=== PATIENT | male | born 1980 | race Caucasian/White ===

== ENCOUNTER 2017-02-05 20:30 | Emergency (ER) | payer BC ==
--- NOTE | 2017-02-05 21:42 | ED CLINICAL REPORT ---
Clinical Report - Physicians/Mid Levels [facility] [address] [place] [address] 02/05/2017 20:33 [id number] Time Seen: 21:01; initial patient contact. Arrived- By private vehicle. Historian- patient. HISTORY OF PRESENT ILLNESS Chief Complaint: Injury to the right ring finger. The injury happened today. The patient sustained a laceration from a sharp edge. Patient is experiencing mild pain. Patient denies injury to the head or neck. REVIEW OF SYSTEMS The patient sustained a laceration. No swelling, tingling, numbness, weakness or foreign body. All systems otherwise negative, except as recorded above. PAST HISTORY See nurses notes. The patient's dominant hand is the right. Last tetanus immunization was more than 5 years ago. SOCIAL HISTORY Smoker - current status unknown. ADDITIONAL NOTES The nursing notes have been reviewed. PHYSICAL EXAM Vital Signs: 02/05/2017 20:40 BP: 133/88. HR: 78. RR: 14. O2 saturation: 98%. Temp: 98.6 F. Have been reviewed as normal. Appearance: Alert. Oriented X3. Skin: Skin warm and dry. Extremities: Right ring finger: subcutaneous 1.5 cm laceration of the dorsal aspect and PIP joint. Neurovascular intact distally. No limitation in movement. No wrist injury. Hand and wrist exam otherwise negative. Extremities otherwise negative. Neuro, Vascular and Tendons: Vascular status intact. Sensation intact. Motor intact. Tendon function intact. Neuro: Oriented X 3. No motor deficit. No sensory deficit. PROGRESS AND PROCEDURES Digital Nerve Block - Finger: Time: 21:25. Digital nerve block performed on the right ring finger. Web space approach utilized. Landmarks identified. Skin prepped. Total volume of 4 mL 1% Lidocaine infiltrated via two punctures using a 27-gauge needle. No complications encountered. Excellent anesthesia achieved. Laceration Repair: Time: 21:39. Location: right ring finger. Per protocol, time-out completed immediately before the procedure. Length: 1.5cm. Complexity: simple (sutured). Wound depth/shape- subcutaneous. Distal neuro/vascular/tendon status normal. Anesthesia provided by digital block using 1% lidocaine (4 mL). Prepped with Hibiclens. Wound explored, irrigated and examined to the base in bloodless field extensively with normal saline. Closure of skin: interrupted 4-0 nylon (3 sutures). Post-procedure: he is stable and there are no complications. Bleeding is controlled and neuro-vascular status is intact distal to the wound. Dressing applied. Tetanus immunization given. Estimated blood loss: 3 mL. Disposition: Discharged home in good and improved condition. Condition: good. CLINICAL IMPRESSION Single deep laceration to the right ring finger.Treatment of laceration not delayed. No infection, foreign body present or right fingernail injury. INSTRUCTIONS Limit use of your right hand for seven days. Do not work for seven days. Warnings: TETANUS: You were given a tetanus shot during your visit. Make a note for future reference. Follow-up: Follow up with your doctor in one week for suture removal. Call for an appointment. Screening today revealed the patient's blood pressure to be in the pre-hypertensive range. The patient should follow up with a primary care provider for blood pressure management. (Electronically signed by Siva Toribio Dr. 02/06/2017 2:45)
--- NOTE | 2017-02-05 21:42 | ED ORDER SUMMARY ---
..... Patient: JACQUELYN KRISHNAMURTHY OrderSheet [facility] VisitID: [id number] [address] [place] [address] 36y, M Registration Date/Time: 02/05/2017 ORDER SHEET Weight: 90.7 kg (estimated) Allergies: Unable to Obtain GENERAL ORDERS: MEDICATION ORDERS: Tdap IM 0.5 mL (NOW, per protocol) (20:48 02/05/2017 Jesse R.N. per protocol) ([facility] 20:48 Jesse R.N.) (21:00 Adalgisa R.N.) IV FLUIDS: ORDER SHEET NOTES: [Electronically signed by Michael Haque R.N. (22:00 02/05/2017)] [Electronically signed by Siva Toribio Dr. (02:45 02/06/2017)] [Electronically locked/signed by Michael Haque R.N. (22:00 02/05/2017)]
--- NOTE | 2017-02-05 21:42 | ED NURSING NOTES ---
Clinical Report - Nurses [facility] [address] [place] [address] 02/05/2017 20:33 Patient: JACQUELYN KRISHNAMURTHY TRIAGE Triage time 20:41. Chief Complaint: LACERATION. Alert. --20:46 Dashawn Garcia R.N. 20:40 02/05/17. BP: 133/88. HR: 78. RR: 14. O2 saturation: 98%. Temp: 98.6 F. Pain level now 10/18. --20:46 Dashawn Garcia R.N. Weight: 90.7 kg estimated. Height/Length: 72 inches Estimated. BMI: 27.1. --21:58 Michael Haque R.N. Allergies Unable to Obtain. --21:59 Michael Haque R.N. History Arrived by private vehicle. Historian: patient. Location of injuries: right ring finger. This occurred today. ( approx 17:50). Treatment DAYTIME CAREGIVER: None. Trauma activation: Pre-hospital notification of patient arrival was not received. FALL RISK ASSESSMENT: Fall risk assessment completed. No fall risk identified. NUTRITIONAL RISK ASSESSMENT: The nutritional risk assessment revealed no deficiencies. FUNCTIONAL ASSESSMENT: Functional assessment: no impairments noted. LEARNING NEEDS ASSESSMENT: The learning needs assessment revealed no barriers. SKIN INTEGRITY ASSESSMENT: Skin integrity risk assessment completed. No skin integrity risk identified. --20:46 Dashawn Garcia R.N. Interventions ID band on patient. --20:46 Dashawn Garcia R.N. PHYSICAL ASSESSMENT GENERAL / NEURO / PSYCH: Alert. Oriented X 4. Appears in no acute distress. RESPIRATORY: Respirations not labored. CVS: Capillary refill less than 2 seconds. EXTREMITIES: Right ring finger: laceration with controlled bleeding. SKIN: Skin is warm and dry. Skin not intact. --21:03 Michael Haque R.N. NURSING PROGRESS NOTES <<STRICKEN ENTRY-- 21:00 02/05/2017 TDAP IM 0.5 mL given. (Lot#: [id number], Wrapper Rewinder: sanofi pasteur). Given in the left deltoid. Allergies verified and confirmed 5 rights. Vaccine information statement provided to the patient. --21:00 Michael Haque R.N. --END STRIKE>> Change to Details. --21:01 Michael Haque R.N. 21:00 02/05/2017 TDAP IM 0.5 mL given. (Lot#: [id number], expiration date: 07/16/2018, Wrapper Rewinder: sanofi pasteur). Given in the left deltoid. Allergies verified and confirmed 5 rights. Vaccine information statement provided to the patient. --21:01 Michael Haque R.N. ( Tech applied dressing and splint to affected finger). --21:52 Michael Haque R.N. ( Splint applied by [employer]). --21:56 Michael Haque R.N. ( Tech who applied splint and dressing is Ivy). --21:58 Michael Haque R.N. DISPOSITION / DISCHARGE Condition at departure: stable. No learning barriers present. Discharge instructions provided and reviewed with the patient. Reviewed warnings. Treatments reviewed. Reviewed referrals for followup. Work note given. Patient verbalized understanding. Written instructions provided in Hebrew. The patient was discharged home and unaccompanied at time of discharge. He left the Emergency Department ambulatory and via private vehicle. Patient driving. --21:53 Michael Haque R.N. 21:52 02/05/17. HR: 85. RR: 16 (regular and unlabored). O2 saturation: 98% on room air. Pain level now: 10/18. --21:53 Michael Haque R.N. Departure time: :56. --21:56 Michael Haque R.N. Locked/Released at 02/05/2017 22:00 by Michael Haque R.N.
--- NOTE | 2017-02-05 21:42 | ED NURSING NOTES ---
Clinical Report - Nurses [facility] [address] [place] [address] 02/05/2017 20:33 Patient: JACQUELYN KRISHNAMURTHY TRIAGE Triage time 20:41. Chief Complaint: LACERATION. Alert. --20:46 Dashawn Garcia R.N. 20:40 02/05/17. BP: 133/88. HR: 78. RR: 14. O2 saturation: 98%. Temp: 98.6 F. Pain level now 10/18. --20:46 Dashawn Garcia R.N. Weight: 90.7 kg estimated. Height/Length: 72 inches Estimated. BMI: 27.1. --21:58 Michael Haque R.N. Allergies Unable to Obtain. --21:59 Michael Haque R.N. History Arrived by private vehicle. Historian: patient. Location of injuries: right ring finger. This occurred today. ( approx 17:50). Treatment FUNDRAISING CONSULTANT: None. Trauma activation: Pre-hospital notification of patient arrival was not received. FALL RISK ASSESSMENT: Fall risk assessment completed. No fall risk identified. NUTRITIONAL RISK ASSESSMENT: The nutritional risk assessment revealed no deficiencies. FUNCTIONAL ASSESSMENT: Functional assessment: no impairments noted. LEARNING NEEDS ASSESSMENT: The learning needs assessment revealed no barriers. SKIN INTEGRITY ASSESSMENT: Skin integrity risk assessment completed. No skin integrity risk identified. --20:46 Dashawn Garcia R.N. Interventions ID band on patient. --20:46 Dashawn Garcia R.N. PHYSICAL ASSESSMENT GENERAL / NEURO / PSYCH: Alert. Oriented X 4. Appears in no acute distress. RESPIRATORY: Respirations not labored. CVS: Capillary refill less than 2 seconds. EXTREMITIES: Right ring finger: laceration with controlled bleeding. SKIN: Skin is warm and dry. Skin not intact. --21:03 Michael Haque R.N. NURSING PROGRESS NOTES <<STRICKEN ENTRY-- 21:00 02/05/2017 TDAP IM 0.5 mL given. (Lot#: [id number], System Operator: sanofi pasteur). Given in the left deltoid. Allergies verified and confirmed 5 rights. Vaccine information statement provided to the patient. --21:00 Michael Haque R.N. --END STRIKE>> Change to Details. --21:01 Michael Haque R.N. 21:00 02/05/2017 TDAP IM 0.5 mL given. (Lot#: [id number], expiration date: 07/16/2018, System Operator: sanofi pasteur). Given in the left deltoid. Allergies verified and confirmed 5 rights. Vaccine information statement provided to the patient. --21:01 Michael Haque R.N. ( Tech applied dressing and splint to affected finger). --21:52 Michael Haque R.N. ( Splint applied by [employer]). --21:56 Michael Haque R.N. ( Tech who applied splint and dressing is Ivy). --21:58 Michael Haque R.N. DISPOSITION / DISCHARGE Condition at departure: stable. No learning barriers present. Discharge instructions provided and reviewed with the patient. Reviewed warnings. Treatments reviewed. Reviewed referrals for followup. Work note given. Patient verbalized understanding. Written instructions provided in Chinese. The patient was discharged home and unaccompanied at time of discharge. He left the Emergency Department ambulatory and via private vehicle. Patient driving. --21:53 Michael Haque R.N. 21:52 02/05/17. HR: 85. RR: 16 (regular and unlabored). O2 saturation: 98% on room air. Pain level now: 10/18. --21:53 Michael Haque R.N. Departure time: :56. --21:56 Michael Haque R.N. Locked/Released at 02/05/2017 22:00 by Michael Haque R.N.
--- NOTE | 2017-02-05 21:42 | ED ORDER SUMMARY ---
..... Patient: JACQUELYN KRISHNAMURTHY OrderSheet [facility] VisitID: [id number] [address] [place] [address] 36y, M Registration Date/Time: 02/05/2017 ORDER SHEET Weight: 90.7 kg (estimated) Allergies: Unable to Obtain GENERAL ORDERS: MEDICATION ORDERS: Tdap IM 0.5 mL (NOW, per protocol) (20:48 02/05/2017 Jesse R.N. per protocol) ([facility] 20:48 Jesse R.N.) (21:00 Adalgisa R.N.) IV FLUIDS: ORDER SHEET NOTES: [Electronically signed by Michael Haque R.N. (22:00 02/05/2017)] [Electronically signed by Siva Toribio Dr. (02:45 02/06/2017)] [Electronically locked/signed by Michael Haque R.N. (22:00 02/05/2017)]
--- NOTE | 2017-02-05 21:42 | ED CLINICAL REPORT ---
Clinical Report - Physicians/Mid Levels [facility] [address] [place] [address] 02/05/2017 20:33 [id number] Time Seen: 21:01; initial patient contact. Arrived- By private vehicle. Historian- patient. HISTORY OF PRESENT ILLNESS Chief Complaint: Injury to the right ring finger. The injury happened today. The patient sustained a laceration from a sharp edge. Patient is experiencing mild pain. Patient denies injury to the head or neck. REVIEW OF SYSTEMS The patient sustained a laceration. No swelling, tingling, numbness, weakness or foreign body. All systems otherwise negative, except as recorded above. PAST HISTORY See nurses notes. The patient's dominant hand is the right. Last tetanus immunization was more than 5 years ago. SOCIAL HISTORY Smoker - current status unknown. ADDITIONAL NOTES The nursing notes have been reviewed. PHYSICAL EXAM Vital Signs: 02/05/2017 20:40 BP: 133/88. HR: 78. RR: 14. O2 saturation: 98%. Temp: 98.6 F. Have been reviewed as normal. Appearance: Alert. Oriented X3. Skin: Skin warm and dry. Extremities: Right ring finger: subcutaneous 1.5 cm laceration of the dorsal aspect and PIP joint. Neurovascular intact distally. No limitation in movement. No wrist injury. Hand and wrist exam otherwise negative. Extremities otherwise negative. Neuro, Vascular and Tendons: Vascular status intact. Sensation intact. Motor intact. Tendon function intact. Neuro: Oriented X 3. No motor deficit. No sensory deficit. PROGRESS AND PROCEDURES Digital Nerve Block - Finger: Time: 21:25. Digital nerve block performed on the right ring finger. Web space approach utilized. Landmarks identified. Skin prepped. Total volume of 4 mL 1% Lidocaine infiltrated via two punctures using a 27-gauge needle. No complications encountered. Excellent anesthesia achieved. Laceration Repair: Time: 21:39. Location: right ring finger. Per protocol, time-out completed immediately before the procedure. Length: 1.5cm. Complexity: simple (sutured). Wound depth/shape- subcutaneous. Distal neuro/vascular/tendon status normal. Anesthesia provided by digital block using 1% lidocaine (4 mL). Prepped with Hibiclens. Wound explored, irrigated and examined to the base in bloodless field extensively with normal saline. Closure of skin: interrupted 4-0 nylon (3 sutures). Post-procedure: he is stable and there are no complications. Bleeding is controlled and neuro-vascular status is intact distal to the wound. Dressing applied. Tetanus immunization given. Estimated blood loss: 3 mL. Disposition: Discharged home in good and improved condition. Condition: good. CLINICAL IMPRESSION Single deep laceration to the right ring finger.Treatment of laceration not delayed. No infection, foreign body present or right fingernail injury. INSTRUCTIONS Limit use of your right hand for seven days. Do not work for seven days. Warnings: TETANUS: You were given a tetanus shot during your visit. Make a note for future reference. Follow-up: Follow up with your doctor in one week for suture removal. Call for an appointment. Screening today revealed the patient's blood pressure to be in the pre-hypertensive range. The patient should follow up with a primary care provider for blood pressure management. (Electronically signed by Siva Toribio Dr. 02/06/2017 2:45)
--- NOTE | 2017-02-06 02:46 | ED MED RECONCILIATION SUMMARY ---
Patient: JACQUELYN KRISHNAMURTHY Medication Reconciliation Report [facility] VisitID: [id number] [address] [place] [address] 36y, M Registration Date/Time: 02/05/2017 Weight: 90.7 kg Height/Length: 72 in. BMI: 27.1 ALLERGIES: Unable to Obtain The patient's Home Medications are listed below: Not obtained. The source(s) of the original Home Medication information: Not obtained. The following Medications were given to the patient in the Emergency Department: TDAP [IM] IM 0.5 mL, administered: 02/05/2017 9:00:00 PM The following Medications were prescribed to the patient: None.
--- NOTE | 2017-02-06 02:46 | ED DISCHARGE INSTRUCTIONS ---
Patient: JACQUELYN KRISHNAMURTHY General Instructions [facility] VisitID: [id number] [place] [address] 36y, M Registration Date/Time: 02/05/2017 Single deep laceration to the right ring finger.Treatment of laceration not delayed. No infection, foreign body present or right fingernail injury. INSTRUCTIONS Limit use of your right hand for seven days. Do not work for seven days. Warnings: TETANUS: You were given a tetanus shot during your visit. Make a note for future reference. Follow-up: Follow up with your doctor in one week for suture removal. Call for an appointment. Screening today revealed the patient's blood pressure to be in the pre-hypertensive range. The patient should follow up with a primary care provider for blood pressure management. ADDITIONAL INFORMATION Laceration (All Closures) Alaceration is a cut through the skin. This will usually require stitches (sutures) or jamia if it is deep. Minor cuts may be treated with a surgical tape closure orskin glue. Home care The following guidelines will help you care for your laceration at home: Extremity, face, or trunk wounds Keep the wound clean and dry. If a bandage was applied and it becomes wet or dirty, replace it. Otherwise, leave it in place for the first 24 hours. If stitches or jamia were used, clean the wound daily. After removing the bandage, wash the area with soap and water. Use a wet cotton swab to loosen and remove any blood or crust that forms. The doctor may prescribe an antibiotic cream or ointment to prevent infection. Do not stop taking this medication until you have finished the prescribed course or the doctor tells you to stop. The doctor may also prescribe medications for pain. Follow the doctors instructions for taking these medications. You may remove the bandage to shower as usual after the first 24 hours, but do not soak the area in water (no swimming) until the stitches or jamia are removed. If surgical tape was used, keep the area clean and dry. If it becomes wet, blot it dry with a towel. If skin glue was used, do not scratch, rub, or pick at the adhesive film. Do not place tape directly over the film. Do not apply liquid, ointment, or creams to the wound while the film is in place. Do not clean the wound with peroxide and do not apply ointments. Avoid activities that cause heavy sweating until the film has fallen off. Protect the wound from prolonged exposure to sunlight or tanning lamps. You may shower as usual but do not soak the wound in water (no baths or swimming). The film will fall off by itself in 510 days. Scalp wounds During the first two days, you may carefully rinse your hair in the shower to remove blood, glass or dirt particles. After two days, you may shower and shampoo your hair normally. Do not soak your scalp in the tub or go swimming until the stitches or jamia have been removed. Talk with your doctor before applying any antibiotic ointment to the wound. Mouth wounds Eat soft foods to reduce pain. If the cut is inside of your mouth, clean by rinsing after each meal and at bedtime with a mixture of equal parts water and hydrogen peroxide (do not swallow!). Or, you can use a cotton swab to directly apply hydrogen peroxide onto the cut. Mouth wounds can be painful when eating. You may use an [id number] local numbing solution for pain relief. If this is not available, you may use any numbing solution for teething babies. You may apply this directly to the sores with a cotton-tip swab or with your finger. Follow-up care Follow up with your health care provider. Most skin wounds heal within ten days. Mouth and facial wounds heal within five days. However, even with proper treatment, a wound infection may sometimes occur. Therefore, you should check the wound daily for signs of infection listed below. Stitches should be removed from the face within five days; stitches and jamia should be removed from other parts of the body within 714 days. If dissolving stitches were used in the mouth, these will fall out or dissolve without the need for removal. If tape closures were used, remove them yourself if they have not fallen off after 7 days. Ifskin glue was used, the film will fall off by itself in 510 days. When to seek medical care Get prompt medical attention if any of these occur: Bleeding not controlled by direct pressure Signs of infection, including increasing pain in the wound, increasing wound redness or swelling, or pus coming from the wound Fever of 100.4F (38C) or higher, or as directed by your health care provider Stitches or jamia come apart or fall out or surgical tape falls off before 7 days Wound edges re-open Diphtheria Toxoid Adsorbed, Pertussis Vaccine, Acellular (Adsorbed), Tetanus Toxoid, Adsorbed Suspension for injection What is this medicine? DIPHTHERIA and TETANUS TOXOIDS; PERTUSSIS VACCINE (dif THEER ee uh and TET n us TOK soids; per TUS iss vak SEEN) is used to prevent diphtheria, tetanus, and pertussis infections. How should I use this medicine? This vaccine is for injection into a muscle. It is given by a health senior caregiver. A copy of Vaccine Information Statements will be given before each vaccination. Read this sheet carefully each time. The sheet may change frequently. Talk to your patternmaker bench regarding the use of this vaccine in children. While the DTP vaccine may be given to children ages 6 weeks to 7 years and the Tdap vaccine may be given to children at least 10 years old, precautions do apply. What side effects may I notice from receiving this medicine? Side effects that you should report to your doctor or health senior caregiver as soon as possible: allergic reactions like skin rash, itching or hives, swelling of the face, lips, or tongue breathing problems fever of 103 degrees F or more flu-like symptoms inconsolable crying infection pain, tingling, numbness in the hands or feet seizures swelling of arm or leg that was injected unusually weak or tired Side effects that usually do not require immediate medical attention (report these side effects to your doctor or health senior caregiver if they continue or are bothersome): fussy, irritable loss of appetite fever of 102 degrees F or less pain, tenderness, redness, swelling, or a 'knot' at site where injected vomiting What may interact with this medicine? immune globulin medicines that suppress your immune function like adalimumab, anakinra, infliximab medicines to treat cancer medicines that treat or prevent blood clots like warfarin, enoxaparin, and dalteparin steroid medicines like prednisone or cortisone What if I miss a dose? It is important not to miss your dose. Call your doctor or health senior caregiver if you are unable to keep an appointment. Where should I keep my medicine? This drug is given in a hospital or clinic and will not be stored at home. What should I tell my health care provider before I take this medicine? They need to know if you have any of these conditions: blood disorders like hemophilia fever or infection immune system problems neurologic disease seizures an unusual or allergic reaction to vaccines, thimerosal, latex, other medicines, foods, dyes, or preservatives or trying to get breast-feeding What should I watch for while using this medicine? See your health care provider for all shots of this vaccine as directed. To have protection from infection, you must have 3 shots of this vaccine plus boosters as needed. Tell your doctor right away if you have any serious or unusual side effects after getting this vaccine. You have been given the following additional information: Laceration, All Diphtheria Toxoid Adsorbed, Pertussis Vaccine, Acellular (Adsorbed), Tetanus Toxoid, Adsorbed Suspension for injection Limit use of your right hand for seven days. Do not work for seven days. (Electronically signed by Siva Toribio Dr. 02/06/2017 2:45)
--- NOTE | 2017-02-06 02:46 | ED MED RECONCILIATION SUMMARY ---
Patient: JACQUELYN KRISHNAMURTHY Medication Reconciliation Report [facility] VisitID: [id number] [address] [place] [address] 36y, M Registration Date/Time: 02/05/2017 Weight: 90.7 kg Height/Length: 72 in. BMI: 27.1 ALLERGIES: Unable to Obtain The patient's Home Medications are listed below: Not obtained. The source(s) of the original Home Medication information: Not obtained. The following Medications were given to the patient in the Emergency Department: TDAP [IM] IM 0.5 mL, administered: 02/05/2017 9:00:00 PM The following Medications were prescribed to the patient: None.
--- NOTE | 2017-02-06 02:46 | ED DISCHARGE INSTRUCTIONS ---
Patient: JACQUELYN KRISHNAMURTHY General Instructions [facility] VisitID: [id number] [place] [address] 36y, M Registration Date/Time: 02/05/2017 Single deep laceration to the right ring finger.Treatment of laceration not delayed. No infection, foreign body present or right fingernail injury. INSTRUCTIONS Limit use of your right hand for seven days. Do not work for seven days. Warnings: TETANUS: You were given a tetanus shot during your visit. Make a note for future reference. Follow-up: Follow up with your doctor in one week for suture removal. Call for an appointment. Screening today revealed the patient's blood pressure to be in the pre-hypertensive range. The patient should follow up with a primary care provider for blood pressure management. ADDITIONAL INFORMATION Laceration (All Closures) Alaceration is a cut through the skin. This will usually require stitches (sutures) or jamia if it is deep. Minor cuts may be treated with a surgical tape closure orskin glue. Home care The following guidelines will help you care for your laceration at home: Extremity, face, or trunk wounds Keep the wound clean and dry. If a bandage was applied and it becomes wet or dirty, replace it. Otherwise, leave it in place for the first 24 hours. If stitches or jamia were used, clean the wound daily. After removing the bandage, wash the area with soap and water. Use a wet cotton swab to loosen and remove any blood or crust that forms. The doctor may prescribe an antibiotic cream or ointment to prevent infection. Do not stop taking this medication until you have finished the prescribed course or the doctor tells you to stop. The doctor may also prescribe medications for pain. Follow the doctors instructions for taking these medications. You may remove the bandage to shower as usual after the first 24 hours, but do not soak the area in water (no swimming) until the stitches or jamia are removed. If surgical tape was used, keep the area clean and dry. If it becomes wet, blot it dry with a towel. If skin glue was used, do not scratch, rub, or pick at the adhesive film. Do not place tape directly over the film. Do not apply liquid, ointment, or creams to the wound while the film is in place. Do not clean the wound with peroxide and do not apply ointments. Avoid activities that cause heavy sweating until the film has fallen off. Protect the wound from prolonged exposure to sunlight or tanning lamps. You may shower as usual but do not soak the wound in water (no baths or swimming). The film will fall off by itself in 510 days. Scalp wounds During the first two days, you may carefully rinse your hair in the shower to remove blood, glass or dirt particles. After two days, you may shower and shampoo your hair normally. Do not soak your scalp in the tub or go swimming until the stitches or jamia have been removed. Talk with your doctor before applying any antibiotic ointment to the wound. Mouth wounds Eat soft foods to reduce pain. If the cut is inside of your mouth, clean by rinsing after each meal and at bedtime with a mixture of equal parts water and hydrogen peroxide (do not swallow!). Or, you can use a cotton swab to directly apply hydrogen peroxide onto the cut. Mouth wounds can be painful when eating. You may use an [id number] local numbing solution for pain relief. If this is not available, you may use any numbing solution for teething babies. You may apply this directly to the sores with a cotton-tip swab or with your finger. Follow-up care Follow up with your health care provider. Most skin wounds heal within ten days. Mouth and facial wounds heal within five days. However, even with proper treatment, a wound infection may sometimes occur. Therefore, you should check the wound daily for signs of infection listed below. Stitches should be removed from the face within five days; stitches and jamia should be removed from other parts of the body within 714 days. If dissolving stitches were used in the mouth, these will fall out or dissolve without the need for removal. If tape closures were used, remove them yourself if they have not fallen off after 7 days. Ifskin glue was used, the film will fall off by itself in 510 days. When to seek medical care Get prompt medical attention if any of these occur: Bleeding not controlled by direct pressure Signs of infection, including increasing pain in the wound, increasing wound redness or swelling, or pus coming from the wound Fever of 100.4F (38C) or higher, or as directed by your health care provider Stitches or jamia come apart or fall out or surgical tape falls off before 7 days Wound edges re-open Diphtheria Toxoid Adsorbed, Pertussis Vaccine, Acellular (Adsorbed), Tetanus Toxoid, Adsorbed Suspension for injection What is this medicine? DIPHTHERIA and TETANUS TOXOIDS; PERTUSSIS VACCINE (dif THEER ee uh and TET n us TOK soids; per TUS iss vak SEEN) is used to prevent diphtheria, tetanus, and pertussis infections. How should I use this medicine? This vaccine is for injection into a muscle. It is given by a health menagerie caretaker. A copy of Vaccine Information Statements will be given before each vaccination. Read this sheet carefully each time. The sheet may change frequently. Talk to your electronic assembly regarding the use of this vaccine in children. While the DTP vaccine may be given to children ages 6 weeks to 7 years and the Tdap vaccine may be given to children at least 10 years old, precautions do apply. What side effects may I notice from receiving this medicine? Side effects that you should report to your doctor or health menagerie caretaker as soon as possible: allergic reactions like skin rash, itching or hives, swelling of the face, lips, or tongue breathing problems fever of 103 degrees F or more flu-like symptoms inconsolable crying infection pain, tingling, numbness in the hands or feet seizures swelling of arm or leg that was injected unusually weak or tired Side effects that usually do not require immediate medical attention (report these side effects to your doctor or health menagerie caretaker if they continue or are bothersome): fussy, irritable loss of appetite fever of 102 degrees F or less pain, tenderness, redness, swelling, or a 'knot' at site where injected vomiting What may interact with this medicine? immune globulin medicines that suppress your immune function like adalimumab, anakinra, infliximab medicines to treat cancer medicines that treat or prevent blood clots like warfarin, enoxaparin, and dalteparin steroid medicines like prednisone or cortisone What if I miss a dose? It is important not to miss your dose. Call your doctor or health menagerie caretaker if you are unable to keep an appointment. Where should I keep my medicine? This drug is given in a hospital or clinic and will not be stored at home. What should I tell my health care provider before I take this medicine? They need to know if you have any of these conditions: blood disorders like hemophilia fever or infection immune system problems neurologic disease seizures an unusual or allergic reaction to vaccines, thimerosal, latex, other medicines, foods, dyes, or preservatives or trying to get breast-feeding What should I watch for while using this medicine? See your health care provider for all shots of this vaccine as directed. To have protection from infection, you must have 3 shots of this vaccine plus boosters as needed. Tell your doctor right away if you have any serious or unusual side effects after getting this vaccine. You have been given the following additional information: Laceration, All Diphtheria Toxoid Adsorbed, Pertussis Vaccine, Acellular (Adsorbed), Tetanus Toxoid, Adsorbed Suspension for injection Limit use of your right hand for seven days. Do not work for seven days. (Electronically signed by Siva Toribio Dr. 02/06/2017 2:45)
--- NOTE | 2017-02-06 02:46 | ED MAR SUMMARY ---
..... Medication Administration Record [facility] [address] [place] [address] Patient: JACQUELYN KRISHNAMURTHY Visit ID: [id number] 36y, M Weight: 90.7 kg Height/Length: 72 in BMI: 27.1 ALLERGIES: Unable to Obtain Given 21:00 02/05/2017 Michael Haque R.N. Medication Administered: TDAP [IM], Dose: 0.5 mL IM. Medication Ordered: Tdap IM 0.5 mL (NOW, per protocol).
--- NOTE | 2017-02-06 02:46 | ED MAR SUMMARY ---
..... Medication Administration Record [facility] [address] [place] [address] Patient: JACQUELYN KRISHNAMURTHY Visit ID: [id number] 36y, M Weight: 90.7 kg Height/Length: 72 in BMI: 27.1 ALLERGIES: Unable to Obtain Given 21:00 02/05/2017 Michael Haque R.N. Medication Administered: TDAP [IM], Dose: 0.5 mL IM. Medication Ordered: Tdap IM 0.5 mL (NOW, per protocol).
== END 2017-02-05 21:55 | disposition home or self-care (01) ==
LOC: ED SRH 20:30
DX: S61.214A Laceration without foreign body of right ring finger without damage to nail, initial encounter (principal); W26.9XXA Contact with unspecified sharp object(s), initial encounter; Y93.9 Activity, unspecified; Y92.9 Unspecified place or not applicable; Y99.9 Unspecified external cause status